=== PATIENT | male | born 1995 | race Asian ===

== ENCOUNTER 2021-04-18 18:50 | Inpatient (IN) ==
[2021-04-18 19:45] LABS: ABS Eosinophils 0.1 10^3/ul (0-0.6); ABS Monocytes 0.6 10^3/ul (0-0.8); ABS Neutrophils 3.9 10^3/ul (1.5-7.7); Eosinophil % 1.8 %; Hematocrit 49 % (42-52); Lymphocyte % 29.7 %; Mean Corpuscular HGB Conc 35 g/dL (31-36); Mean Corpuscular Hemoglobin 30 pg (27-31); Mean Corpuscular Volume 86 fL (80-94); Mean Platelet Volume 6.7 fL (7.4-10.4); Platelet Count 326 10^3/uL (150-450); Red Cell Distribution Width 13 % (10-15); White Blood Count 6.6 10^3/uL (3.5-10.8)
[2021-04-18 20:03] LABS: ALT 20 U/L (7-52); Acetaminophen < 15 mcg/mL; Albumin 4.8 g/dL (3.2-5.2); Albumin/Globulin Ratio 1.5 (1-3); Alcohol, S 10 mg/dL (<10); Alkaline Phosphatase 69 U/L (35-149); Blood Urea Nitrogen 16 mg/dL (6-24); CO2 Carbon Dioxide 25 mmol/L (22-32); Calcium 9.8 mg/dL (8.6-10.3); Chloride 103 mmol/L (101-111); EGFR African American 122.8 (>60); EGFR Non-African American 101.5 (>60); Globulin 3.1 g/dL (2-4); Glucose 101 mg/dL (70-100); Salicylate < 2.50 mg/dL (<30); Sodium 136 mmol/L (135-145); Total Protein 7.9 g/dL (6.4-8.9)
[2021-04-18 20:18] LABS: TSH Ultra Thyroid Stim Horm 1.98 mcIU/mL (0.34-5.60)
[2021-04-18 20:21] LABS: Anion Gap 8 mmol/L (2-11)
[2021-04-18 20:32] LABS: Urine Appearance Clear; Urine Bilirubin Negative (Negative); Urine Blood 1+ (Negative); Urine Color Yellow; Urine Glucose Negative (Negative); Urine Ketones Negative (Negative); Urine Nitrite Negative (Negative); Urine Protein Negative (Negative); Urine Specific Gravity 1.021 (1.002-1.030); Urine Urobilinogen Negative (Negative)
[2021-04-18 20:43] LABS: Urine Benzodiazepine Screen None Detected (None Detect); Urine Cannabinoids Screen None Detected (None Detect); Urine Opiates Screen None Detected (None Detect)
[2021-04-18 20:45] LABS: Urine Bacteria Absent (Absent); Urine Red Blood Cell Trace(0-2/hpf) (Absent); Urine Squamous Epithelial Cell Present (Absent); Urine White Blood Cell Trace(0-5/hpf) (Absent)
[2021-04-18] MEDS ORDERED: Bacitracin OINTMENT TUBE TOPICAL ONE (22:12)
[2021-04-19] MEDS ORDERED: Al Hydrox/Mg Hydrox/Simet LIQ 30 ML UDC PO PRN (03:21)
[2021-04-19] MEDS: Vitamin THERAPEUTIC TAB PO SCH (09:27)
[2021-04-20 08:43] LABS: HDL Cholesterol 50.2 mg/dL
[2021-04-20] MEDS: Vitamin THERAPEUTIC TAB PO SCH (09:53)
[2021-04-20] MEDS ORDERED: COVID-19 VACCINE, MRNA(MODERNA)/PF 100 MCG/0.5 ML IM ONE (15:00)
[2021-04-21] MEDS: Vitamin THERAPEUTIC TAB PO SCH (08:51)
[2021-04-22] MEDS: Vitamin THERAPEUTIC TAB PO SCH (08:03)
[2021-04-23] MEDS: Vitamin THERAPEUTIC TAB PO SCH (10:39)
[2021-04-24] MEDS: Vitamin THERAPEUTIC TAB PO SCH (08:20)
[2021-04-25 08:07] VITALS: BP 115/59
[2021-04-25] MEDS: Vitamin THERAPEUTIC TAB PO SCH (08:49)
== END 2021-04-25 13:21 | disposition home or self-care (01) | DRG 882 ==
LOC: ED 18:50 → BSU 04-19 01:30
PROVIDERS: ADMIT Psychiatry & Neurology Psychiatry; ATTEND Psychiatry & Neurology Psychiatry